=== PATIENT | male | born 1960 | race Caucasian/White ===

== ENCOUNTER → 2020-07-01 | Outpatient (CLI) | payer OTHER ==
--- NOTE | 2020-07-01 12:40 | XR ---
Right ankle HISTORY: Trauma and pain 3 views the right ankle Bone mineralization, joint spaces and alignment are maintained. Small ossific densities medial to the medial malleolus are well-corticated and not felt likely to be acute. IMPRESSION: No acute fracture or dislocation.
--- NOTE | 2020-07-01 12:41 | XR ---
Right knee HISTORY: Trauma and pain 3 views the right knee Marginal spurring and joint space loss present especially in the medial compartment. No evident joint effusion. Alignment and bone mineralization are maintained. IMPRESSION: Osteoarthritis.
== END | disposition home or self-care (01) ==
LOC: RADXRMAIN 12:11
PROVIDERS: ATTEND Emergency Medicine
DX: M17.11 Unilateral primary osteoarthritis, right knee (principal); S93.401A Sprain of unspecified ligament of right ankle, initial encounter